=== PATIENT | male | born 1990 | race Caucasian/White ===

== ENCOUNTER 2018-10-22 00:14 | Emergency (ER) | payer OTHER ==
[~2018-10-22] VITALS: Ht 177.8 cm; Wt 92.0 kg
[2018-10-22 00:20] VITALS: BP 150/77
--- NOTE | 2018-10-22 00:46 | NUR ---
INFECTION TO RIGHT LOWER JAW. PRESENTS WITH SWELLING TO RIGHT LOWER JAW, STARTED 3 DAYS AGO. NO NOTED DRAINAGE. ATTEMPTED TO DRAIN YESTERDAY AM, DRAINED WHITE PUS. I&D SETUP DONE, CALL LIGHT IN [place]
[2018-10-22] MEDS ORDERED: LIDOCAINE-MPF 1%, 5ML ONE (00:51)
[2018-10-22] MEDS ORDERED: LIDOCAINE 2%, 20ML SQ ONE (01:00)
[2018-10-22] MEDS ORDERED: LIDOCAINE-MPF 1%, 5ML INFIL ONE (01:00)
== END 2018-10-22 01:57 | disposition home or self-care (01) ==
LOC: ED 01:15
DX: L02.01 Cutaneous abscess of face (principal)
CPT/HCPCS: 10060; 99283